=== PATIENT | female | born 1980 | race Caucasian/White ===

== ENCOUNTER 2017-03-02 05:50 | Inpatient (IN) | payer OTHER ==
[2017-03-02] MEDS ORDERED: TUBERCULIN PPD 5 TU/0.1ML SYRINGE (IN PATIENT USE ONLY) ID ONE (06:38)
[2017-03-02] MEDS ORDERED: DEXTROSE 5%-LACTATED RINGERS 1,000 ML IV SCH (07:00)
[2017-03-02 07:20] VITALS: BMI 39.1
[2017-03-02 07:28] LABS: BASOPHIL 0.6 % (0-2.0); EOSINOPHIL 1.9 % (0-4.5); MCH 31.6 pg (25.7-33.7); MCHC 34.8 g/dl (32.0-36.0); MEAN CELL VOLUME 90.8 fl (80-96); MEAN PLT VOLUME 8.1 fl (7.5-11.1); NEUTROPHILS 70.1 % (42.8-82.8); PLATELET COUNT 231 K/MM3 (134-434); RDW 14.1 % (11.6-15.6); WHITE BLOOD COUNT 9.5 K/mm3 (4.0-10.0)
[2017-03-02] MEDS: ELECTROLYTE-148 SOLN 1,000 ML IV SCH ×2 (08:00→11:36)
[2017-03-02] MEDS ORDERED: FENTANYL/BUPIVACAINE/NS/PF - PCEA - 50 ML DISP.SYRIN EP SCH (08:15)
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
--- NOTE | 2017-03-02 08:44 | PN ---
Ante-Partal Exam - Subjective Subjective: Comfortable w/epidural. Vital Signs: Vital Signs Temperature 98.0 F 03/02/17 07:08 Pulse Rate 86 03/02/17 07:08 Respiratory Rate 20 03/02/17 07:08 Blood Pressure 148/74 03/02/17 07:08 O2 Sat by Pulse Oximetry (%) Bleeding: No Headache: No Visual changes: No Right upper quadrant pain: No Pain (scale 1-10): 0 - Contractions Contractions: Yes (q2min) Regularity: Regular Intensity: Mod/Strong Monitor Mode: External - Exam during Labor Heart Rate: 140 Variability: Moderate Heart Rate Location: Midline Category: II Monitor Decelerations: Early Exam: Vaginal Dilatation (cm): 9 Amniotic Membrane Status: Leaking Amniotic Fluid: Clear Presentation: Vertex Station: 0 Remarks: EFW ~3800g by Leoplod's maneuvers Adequate gynecoid pelvimetry - Intrapartum Hemorrhage Risk Medium Risk Factors: None Risk Score: 0 Risk Level: Low Risk - Assessment/Plan Assessment/Plan: 36yo P2 with spontaneous labor. tracing is Category II with occasional early decels due to head descent. The cervical dilation progressed from 4cm to 9cm. Anticipate . Shoulder dystocia precautions. Risks d/w patient.
[2017-03-02] MEDS: ACETAMINOPHEN 325 MG TABLET (FP) PO PRN ×2 (10:45→20:54)
[2017-03-02] MEDS: AMPICILLIN - 2 GM in SODIUM CHLORIDE 100 ML IVPB SCH ×2 (10:45→17:26)
--- NOTE | 2017-03-02 10:48 | PN ---
Progress Note (short form) - Note Progress Note: Patient was fully dilated, without urge to push. Noted to have tachycardia to 160s, moderate variability, + accels. oral temperature noted to be 100.5 Dx with chorioamnionitis, will start ampicillin 2g Q 6 H, gentamicin 160mg (1.5 mg/kg) Q8H for 24 hours after delivery. Will give tylenol for temperature elevation. Will continue to monitor.
[2017-03-02 11:31] LABS: INR 0.93 (0.82-1.09); PROTHROMBIN TIME (PATIENT) 10.2 SEC (9.98-11.88)
[2017-03-02] MEDS ORDERED: WATER IVPB SCH (12:00)
[2017-03-02] MEDS ORDERED: ACETAMINOPHEN 500 MG TABLET (FP) PO ONE (12:00)
[2017-03-02] MEDS ORDERED: DEXTROSE 5% IVPB SCH (12:00)
[2017-03-02] MEDS ORDERED: GENTAMICIN IVPB SCH (12:00)
[2017-03-02 12:34] LABS: ARTERIAL BLD GAS O2 SATURATION 7.5 % (90-98.9); ARTERIAL BLOOD GAS BASE EXCESS -15.6 meq/l (-2-2); ARTERIAL BLOOD GAS HCO3 18.7 meq/L (22-26); ARTERIAL BLOOD GAS PO2 12.1 mmHg (80-100)
[2017-03-02 12:36] LABS: ARTERIAL BLD GAS O2 SATURATION 19.7 % (90-98.9); ARTERIAL BLOOD GAS BASE EXCESS -14.1 meq/l (-2-2); ARTERIAL BLOOD GAS PO2 19.8 mmHg (80-100)
--- NOTE | 2017-03-02 12:36 | PN ---
Delivery - Delivery Vaginal Delivery: No Problems Type of Anesthesia: Epidural EBL (cc): 300 Delivery, Single - Stages of Labor Date 1st Stage Initiatied: 03/02/17 Time 1st Stage Initiated: 05:00 Date 2nd Stage Initiated: 03/02/17 Time 2nd Stage Initiated: 09:15 Date of Delivery: 03/02/17 Time of Delivery: 12:11 Date Placenta Delivered: 03/02/17 Time Placenta Delivered: 12:17 Placenta: Yes: Spontaneous - Condition of Music Intern/Front End Assistant Present: Yes Gender: Male Position: Left, OA - 1 Minute Total Score: 7 5 Minutes Total Score: 9 - Feeding Plan Initial Plan: Elected not to breastfeed exclusively throughout hospitalization Remarks - Remarks Remarks: Patient progressed to fully dilated and at 1211 via delivered a viable male infant in SAM position, APGARs 7,9. Weight and length unknown at this time. Head delivered spontaneously followed by shoulders and body without difficulty. Large amounts of blood clot noted on expulsion of baby's body. with spontaneous cry and placed on mother's abdomen. Cord was clamped and cut. handed to waiting NICU staff. Perineum and vagina examined, a first degree laceration was noted and repaired in the usual fashion. Placenta was delivered spontaneously and intact. Examined and partial abruption suspected 20 units of pitocin in 1 L IVF was given. All counts correct x 2. Mother and infant stable in LDR. EBL 300cc.
[2017-03-02 12:38] LABS: PT. ON O2? NO
[2017-03-02 12:39] LABS: ARTERIAL BLOOD GAS pH 7.07 (7.35-7.45)
[2017-03-02] MEDS ORDERED: BENZOCAINE 28 GM HEMORRHOIDAL OINTMENT TP PRN (12:39)
[2017-03-02] MEDS ORDERED: BISACODYL 10 MG SUPP.RECT RC PRN (12:39)
[2017-03-02] MEDS ORDERED: WITCH HAZEL 50% (TUCKS) 40 PAD/JAR PAD TP PRN (12:39)
[2017-03-02] MEDS ORDERED: BENZOCAINE 20% 57 GM BOTTLE TP PRN (12:39)
[2017-03-02] MEDS ORDERED: METHYLERGONOVINE MALEATE 0.2 MG/1 ML AMP IM PRN (12:39)
[2017-03-02] MEDS ORDERED: OXYTOCIN 20 UNITS in 0.9% NS 1,000 ML IV SCH (12:45)
[2017-03-02] MEDS: IBUPROFEN 600 MG TABLET (FP) PO PRN ×2 (13:00→20:54)
[2017-03-02 13:07] LABS: ANION GAP 12 (8-16); CALCIUM 8.8 mg/dL (8.5-10.1); CO2 21 mmol/L (21-32); CREATININE 0.7 mg/dL (0.55-1.02); GLUCOSE,RANDOM 71 mg/dL (74-106)
--- NOTE | 2017-03-03 01:58 | PN ---
Post Progress Note - Subjective Subjective: Patient without acute complaints. Reports tolerating oral intake without nausea or vomiting. Ambulating without dizziness. Denies fevers or chills. Pain well controlled with oral pain medication. without difficulty. Passing flatus. Post Day: 1 Type of Delivery: Vital Signs: Vital Signs Temperature 99.0 F 03/02/17 22:00 Pulse Rate 87 03/02/17 22:00 Respiratory Rate 20 03/02/17 22:00 Blood Pressure 123/86 03/02/17 22:00 O2 Sat by Pulse Oximetry (%) 100 03/02/17 12:00 Breast Exam: Yes: Engorged Uterus: Yes: Fundus Firm Abdomen/GI: Yes: Abdomen soft, Passing flatus, Tolerating PO. No: Tender Lochia: Yes: Serosa Lochia, amount: Small Extremities: Yes: Calves non-tender, Edema (+1) Activity: Ambulating - Labs Labs: CBC WBC 9.5 K/mm3 (4.0-10.0) D 03/02/17 06:30 RBC 4.13 M/mm3 (3.60-5.2) 03/02/17 06:30 Hgb 13.0 GM/dL (10.7-15.3) 03/02/17 06:30 Hct 37.5 % (32.4-45.2) 03/02/17 06:30 MCV 90.8 fl (80-96) 03/02/17 06:30 MCH 31.6 pg (25.7-33.7) 03/02/17 06:30 MCHC 34.8 g/dl (32.0-36.0) 03/02/17 06:30 RDW 14.1 % (11.6-15.6) 03/02/17 06:30 Plt Count 231 K/MM3 (134-434) 03/02/17 06:30 MPV 8.1 fl (7.5-11.1) 03/02/17 06:30 Neutrophils % 70.1 % (42.8-82.8) 03/02/17 06:30 Lymphocytes % 19.5 % (8-40) D 03/02/17 06:30 Monocytes % 7.9 % (3.8-10.2) D 03/02/17 06:30 Eosinophils % 1.9 % (0-4.5) D 03/02/17 06:30 Basophils % 0.6 % (0-2.0) 03/02/17 06:30 Laboratory Tests 03/03/17 07:45 WBC 16.1 H D Hgb 11.2 D Hct 32.6 Plt Count 199 Assessment/Plan 36 yo PPD # 1 s/p , afebrile, vital signs stable, doing well 1. Continue routine care. 2. AM CBC stable, elevated WBC. Plan to repeat tomorrow. 3. Rh positive status, no rhogam indicated. 4. Encourage ambulation 5. Continue oral pain medication 6. No PPD this - did not place on admission. Will f/u CXR 7. Desires circumcision, per well tender (Dr. Edmondson) -reccomend to be done as outpatient 8. Anticipate discharge home day #2
[2017-03-03] MEDS: ACETAMINOPHEN 325 MG TABLET (FP) PO PRN (08:05)
[2017-03-03] MEDS: IBUPROFEN 600 MG TABLET (FP) PO PRN (08:06)
[2017-03-03 08:37] LABS: BASOPHIL 0.7 % (0-2.0); EOSINOPHIL 0.8 % (0-4.5); MCH 31.5 pg (25.7-33.7); MCHC 34.4 g/dl (32.0-36.0); MEAN CELL VOLUME 91.7 fl (80-96); MEAN PLT VOLUME 7.8 fl (7.5-11.1); PLATELET COUNT 199 K/MM3 (134-434); RDW 14.3 % (11.6-15.6); WHITE BLOOD COUNT 16.1 K/mm3 (4.0-10.0)
[2017-03-03] MEDS: PRENATAL VITAMINS W/ FOLIC ACID TABLET (FP) PO SCH (09:25)
[2017-03-03] MEDS ORDERED: SENNOSIDES/DOCUSATE COMBO (SENNA PLUS) TABLET (UD) PO PRN (22:00)
[2017-03-04 07:34] LABS: BASOPHIL 0.5 % (0-2.0); EOSINOPHIL 1.9 % (0-4.5); MCH 31.6 pg (25.7-33.7); MCHC 34.4 g/dl (32.0-36.0); MEAN CELL VOLUME 91.8 fl (80-96); MEAN PLT VOLUME 7.5 fl (7.5-11.1); NEUTROPHILS 76.5 % (42.8-82.8); PLATELET COUNT 198 K/MM3 (134-434); RDW 14.2 % (11.6-15.6); WHITE BLOOD COUNT 12.8 K/mm3 (4.0-10.0)
[2017-03-04 09:35] VITALS: BP 122/72; PULSE 77; TEMP 98.2
[2017-03-04] MEDS: IBUPROFEN 600 MG TABLET (FP) PO PRN (10:01)
[2017-03-04] MEDS: PRENATAL VITAMINS W/ FOLIC ACID TABLET (FP) PO SCH (10:01)
[2017-03-04] MEDS: ACETAMINOPHEN 325 MG TABLET (FP) PO PRN (10:02)
--- NOTE | 2017-03-07 12:36 | PATH ---
Surgical Pathology Report Patient Name: CHASE NAIK [facility]. Rec. 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 Electronically Signed Lázaro Savage M.D. Gross Description The specimen is received fresh labeled placenta and is a 585 gram, 22.0 x 16.0 x 2.5 cm. placenta with attached membranes and umbilical cord. The attached membranes are lewis, thick, cloudy and insert marginally. The umbilical cord measures 20 cm. in length and averages 1 cm. in diameter. There is an additional 17.5 x 1 cm unremarkable portion of umbilical cord separately received within the same container. The cord inserts eccentrically, 4 cm. to the nearest margin. No true knots or strictures are identified. Cut surface of the umbilical cord reveals 3 vessels. The surface is gorman-blue with minimal fibrin deposition and appropriate caliber vessels. The maternal surface is red-brown with focal defects. Sectioning reveals red-brown, spongy parenchyma. No lesions are identified. Feather Separator sections are submitted in three cassettes as follows: 1- membrane rolls and umbilical cord; 2-3- full thickness sections of placenta. /03/04/2017 [facility]03/04/2017
== END 2017-03-04 12:05 | disposition home or self-care (01) | DRG 775 ==
LOC: JLDR 05:50 → J3W 14:20
PROVIDERS: ADMIT Obstetrics & Gynecology; ATTEND Obstetrics & Gynecology
PROC: 10E0XZZ Delivery of Products of Conception, External Approach (ICD-10-PCS; principal; 2017-03-02)
DX: O80 Encounter for full-term uncomplicated delivery (principal); Z3A.39 39 weeks gestation of pregnancy; Z37.0 Single live birth
CPT/HCPCS: 36415; 36600; 59409; 71020-TC; 80048; 82803; 85025; 85610; 85730; 86593; 86850; 86870; 86900; 86901; 86902; 88307-TC